=== PATIENT | female | born 2005 | race Caucasian/White ===

== ENCOUNTER 2025-06-28 10:07 | Emergency (ER) | payer OTHER, SELFPAY ==
[2025-06-28 10:17] VITALS: BP 118/81
--- NOTE | 2025-06-28 11:02 | ED.GENMED ---
History of Present Illness
General
Chief Complaint: Throat Problem
Source: patient and family (Mother)
Time Seen by Provider: 06/28/25 10:47
History of Present Illness
History of Present Illness:
19-year-old female presents to the emergency room with mom for evaluation of sore throat. Patient states she began having a sore throat about 3 weeks ago. She was seen at an urgent care and tested positive for strep. She was prescribed an
antibiotic. After taking the antibiotic she felt better but symptoms returned shortly after the course of antibiotics were completed. Pain seems to be a bit worse on the left. She has pain with swallowing. She has difficulty opening her mouth
fully. Apparently the second strep test at the urgent care was negative. No fever. Patient's had decreased oral intake due to pain with swallowing.
Phy Exam
Physical Exam
Physical Exam:
General: Awake, Alert, Oriented X3. No acute distress.
Vitals: unremarkable
Head: Atraumatic
Eyes: Pupils equal, EOMI
Throat: Airway intact, somewhat enlarged tonsils bilaterally and increased erythema particular on the left. No bulging of the soft palate, no displacement of the uvula
Neck: Trachea midline
Lungs: Clear and equal b/l
Heart: Regular rate, no murmurs
Abd: Soft, Nontender, No pulsatile mass
Neuro: Nonfocal
Skin: Warm, dry, no rash
Extremities: pulses equal b/l, no edema
Course
Orders/Labs/Results
Orders:
Orders
06/28/25 11:00
0.9% Sodium Chloride 1000 ml [Nss] 1,000 ml IV BOLUS
Ketorolac [Toradol] 30 mg IV NOW STA
06/28/25 11:02
Test Result ONCE
06/28/25 11:51
COVID-19 Antigen Urgent
Source: Nasal Swab
Complete Blood Count/With Diff Urgent
Comprehensive Metabolic Panel Urgent
HCG, Serum Qualitative Screen Urgent
Rapid Strep Group A Urgent
DESHAUN Source: Throat/Pharynx
Specimen Description:
Date Specimen was Collected: 06/28/25
Time Specimen was Collected: 11:39
06/28/25 12:32
Monotest Urgent
Abnormal Lab Results
06/28/25 06/28/25
11:51 12:32
WBC 11.5 H 10^3/uL
(4.8-10.8)
MCH 31.1 H pg
(27.0-31.0)
MPV 11.0 H fL
(7.4-10.4)
Absolute Neuts (auto) 8.7 H 10^3/uL
(1.4-6.5)
Absolute Monos (auto) 0.9 H 10^3/uL
(0.1-0.6)
Lymphocytes % 16.1 L %
(20.5-51.1)
Monoscreen Positive A
(Negative)
06/28/25 11:51
06/28/25 11:51
Vital Signs
Initial and Last Documented VS:
Initial Vital Signs
Temp Pulse Resp BP Pulse Ox
98.7 F 80 16 118/81 98
06/28/25 10:17 06/28/25 10:17 06/28/25 10:17 06/28/25 10:17 06/28/25 10:17
Last Documented Vital Signs
Temp Pulse Resp BP Pulse Ox
98.7 F 80 16 118/81 98
06/28/25 10:17 06/28/25 10:17 06/28/25 10:17 06/28/25 10:17 06/28/25 11:05
MDM/Problems Addressed
Differential Diagnosis Includes:
Mononucleosis, strep pharyngitis, other viral pharyngitis, peritonsillar abscess
MDM/Problems Addressed:
Labs show a minimally elevated white blood cell count. Her mono spot is positive. Overall this is consistent with her presentation. Physical exam was not suggestive of a peritonsillar abscess. Will treat with steroids, analgesia
*Pulse Oximetry
SaO2: 98
Oxygen Mode of Delivery: Room air
Patient hypoxic: no
*Critical Care Note
Total Time (30-74mins, 75-104mins- exclusive of procedures): Not Applicable
ED Attending Note
-
Portions of this chart may have been created with voice recognition software.� Occasional wrong word or��sound alike� substitutions may have occurred due to the inherent limitations of voice recognition software.
Discharge Plan
Departure
Patient Disposition: Home (Routine Discharge)
Date of Disposition: 06/28/25
Time of Disposition: 13:13
Patient with high blood pressure during this ER visit?: No
Condition: Good
Discharge Problem:
Acute sore throat, Mononucleosis
Instructions: Mononucleosis (DC)
Prescriptions:
New
prednisone 20 mg tablet
40 mg PO DAILY Qty: 8 0RF
Referrals:
Alis Raymundo MD [Family Provider, Internal Medicine]
Activity Restrictions/Additional Instructions:
You can take 400mg of ibuprofen and 650mg of Tylenol every 6 hours for sore throart.
Interventions
Interventions:
*Risk Screen - Suicide Last Done: 06/28/25 10:17
*Neglect/Abuse Screening Last Done: 06/28/25 10:17
Discharge Date and Time
Print Language: ALBAN[place]
[2025-06-28] MEDS: NSS 1000 IV (11:54)
[2025-06-28] MEDS: TORADOL 30 MG IV (11:54)
[2025-06-28 12:06] LABS: Hematocrit 40.7 % (37.0-47.0); Hemoglobin 13.8 g/dL (12.0-16.0); Mean Corp Hgb Conc. 33.9 g/dL (33.0-37.0); Mean Corpuscular Volume 91.7 fL (81.0-99.0); Nucleated Red Blood Cells % 0 %; Platelet Count 290 10^3/uL (130-400); Red Cell Dist. Width 12.0 % (11.5-14.5)
[2025-06-28 12:26] LABS: COVID-19 Antigen Negative (Negative)
[2025-06-28 12:30] LABS: HCG, Serum Qualitative Screen Negative
[2025-06-28 12:33] LABS: ALT (SGPT) 13 U/L (0-35); AST (SGOT) 18 U/L (14-36); Albumin 4.5 g/dl (3.5-5.0); Alkaline Phosphatase 64 U/L (38-126); Blood Urea Nitrogen 12 mg/dl (7-17); Calcium 9.7 mg/dl (8.4-10.2); Carbon Dioxide 29 mmol/L (22-30); Chloride 103 mmol/L (98-107); Glucose 89 mg/dl (70-99); Potassium 4.3 mmol/L (3.5-5.1); Sodium 136 mmol/L (135-145); Total Protein 8.0 g/dl (6.3-8.2); eGFR > 60.00
== END 2025-06-28 13:29 | disposition home or self-care (01) ==
LOC: EMR 10:07
PROVIDERS: EMERGENCY PHYSICIAN Emergency Medicine; FAMILY PHYSICIAN Internal Medicine
DX: B27.90 Infectious mononucleosis, unspecified without complication (principal); J02.9 Acute pharyngitis, unspecified; Z91.040 Latex allergy status
CPT/HCPCS: 99284; 96374; 96361; 80053; 84703; 85025; 86308; 87070; 87811; 87880